=== PATIENT | female | born 1965 | race Caucasian/White ===

== ENCOUNTER 2020-06-15 14:49 | Emergency (ER) | payer OTHER ==
[2020-06-15 18:29] LABS: HEMOGLOBIN 15.9 gm/dl (12.3-15.3); RED BLOOD COUNT 5.45 M/UL (4.00-5.10); WHITE BLOOD COUNT 6.4 K/UL (4.5-11.0)
[2020-06-15 18:49] LABS: BUN/CREATININE RATIO 19 (0-10)
[2020-06-15] MEDS ORDERED: PROTONIX40 MG PO (22:13)
[2020-06-15] MEDS ORDERED: ZOFRAN4 MG PO (22:13)
== END 2020-06-15 23:12 | disposition home or self-care (01) ==
LOC: ER1 14:49
PROVIDERS: Physician Assistant
DX: K21.9 Gastro-esophageal reflux disease without esophagitis (principal); E87.6 Hypokalemia; E78.5 Hyperlipidemia, unspecified; I10 Essential (primary) hypertension; Z90.710 Acquired absence of both cervix and uterus; Z88.6 Allergy status to analgesic agent
CPT/HCPCS: 71045; 80053; 81001; 82150; 83690; 85025; 93005; 96365; 96375; 99285; J2405; J7030; Q9967